=== PATIENT | female | born 1995 | race Hispanic/Latino ===

== ENCOUNTER 2021-08-09 08:36 | Day surgery (SDC) | payer OTHER, SELFPAY ==
[2021-08-09] MEDS ORDERED: hydrALAZINE 20 MG/ML VIAL SLOW IVP PRN (08:49)
[2021-08-09] MEDS ORDERED: Acetaminophen 500 MG TAB PO SCH (09:30)
[2021-08-09] MEDS ORDERED: Lactated Ringer's 1,000 ML IV SCH (09:45)
[2021-08-09 10:08] VITALS: BMI 31.6
[2021-08-09 10:13] VITALS: TEMP 102.2
[2021-08-09 10:14] LABS: SARS-CoV-2 NAA Rapid Test DETECTED (NotDetected)
== END 2021-08-09 11:40 | disposition home or self-care (01) ==
LOC: CSHLD/OP 08:36
PROVIDERS: ATTEND Obstetrics & Gynecology
DX: O98.513 Other viral diseases complicating pregnancy, third trimester (principal); U07.1 COVID-19; Z3A.28 28 weeks gestation of pregnancy
CPT/HCPCS: 96360; 99283

== ENCOUNTER 2021-10-10 14:52 | Outpatient (CLI) | payer OTHER | END 2021-10-10 14:53 | disposition home or self-care (01) | LOC: CSHLAB 14:52 | PROVIDERS: ATTEND Family Medicine | DX: Z20.822 Contact with and (suspected) exposure to COVID-19 (principal) | CPT/HCPCS: 87811 ==

== ENCOUNTER 2021-10-14 18:00 | Inpatient (IN) | payer OTHER ==
[2021-10-14 23:01] VITALS: BMI 31.6
[2021-10-14] MEDS ORDERED: Promethazine HCl 25 MG/ML VIAL IM PRN (23:45)
[2021-10-14] MEDS ORDERED: Docusate 100 MG CAP PO PRN (23:45)
[2021-10-14] MEDS ORDERED: Ondansetron PF 4 MG/2 ML Vial IVP PRN (23:45)
[2021-10-14] MEDS ORDERED: NS w/ Oxytocin 30 units 500 ML IV SCH (23:45)
[2021-10-14] MEDS ORDERED: Lidocaine 1% (PF) 30 ML VIAL SC PRN (23:45)
[2021-10-14] MEDS ORDERED: Ibuprofen 800 MG TAB PO PRN (23:45)
[2021-10-14] MEDS ORDERED: hydrALAZINE 20 MG/ML VIAL SLOW IVP PRN (23:45)
[2021-10-14] MEDS ORDERED: Misoprostol 100 MCG TAB VAG SCH (23:45)
[2021-10-14] MEDS: Lactated Ringer's 1,000 ML IV SCH (23:57)
[2021-10-15 00:18] LABS: Hemoglobin 11.3 g/dL (12.0-15.5); Mean Corpuscular HGB CONC 33.6 g/dL (32.0-36.0); Mean Corpuscular Hemoglobin 31.4 pg (27.0-33.0); Mean Corpuscular Volume 93.3 fl (81.6-98.3); Mean Platelet Volume 10.3 fl (7.4-10.4); Platelet Count 379 10x3/uL (150-450); RBC Distribution Width 12.9 % (11.5-14.5); White Blood Cell (WBC) Count 14.3 10x3/uL (3.5-10.5)
[2021-10-15] MEDS: NS w/ Oxytocin 30 units 500 ML IV SCH ×2 (00:43→16:55)
[2021-10-15 00:52] LABS: Syphilis Antibody Nonreactive (Nonreactive); Syphilis Antibody Index 0.04 S/CO (<1.00 Non-Reactive)
[2021-10-15 00:53] LABS: HBSAg Index 0.23 S/CO (0-0.99); Hep B Surf Ag Non-Reactive S/CO (NonReactive)
[2021-10-15] MEDS: Lactated Ringer's 1,000 ML IV SCH (07:08)
[2021-10-15] MEDS ORDERED: Fentanyl 2 mcg/Bup 0.1% Cadd 100 ML ONE (09:47)
[2021-10-15] MEDS ORDERED: diphenhydrAMINE 50 MG/ML VIAL IVP PRN (10:14)
[2021-10-15] MEDS ORDERED: Moisturizing Cream (Eucerin) 113 GM JAR TOP PRN (10:14)
[2021-10-15] MEDS ORDERED: Acetaminophen 325 MG TAB PO PRN (10:14)
[2021-10-15] MEDS ORDERED: Lactated Ringer's 500 ML IV PRN (10:14)
[2021-10-15] MEDS ORDERED: Ondansetron PF 4 MG/2 ML Vial IVP PRN ×2 (10:14→19:47)
[2021-10-15] MEDS ORDERED: Naloxone HCl 0.4 mg/ml Vial IVP PRN ×2 (10:14)
[2021-10-15] MEDS ORDERED: ePHEDrine Sulfate 50 MG/10 ML VIAL SLOW IVP PRN (10:14)
[2021-10-15] MEDS ORDERED: Promethazine HCl 25 MG/ML VIAL IM PRN (10:14)
[2021-10-15] MEDS ORDERED: Communication Order-Pharmacy FS SCH (10:15)
[2021-10-15] MEDS ORDERED: Fentanyl 2 mcg/Bupivacaine 0.1% Cassette 100 ML EPIDURAL SCH (10:15)
[2021-10-15] MEDS ORDERED: Methylergonovine 0.2 MG/ML VIAL ONE (13:57)
[2021-10-15] MEDS ORDERED: Carboprost 250 MCG/ML AMP ONE (13:58)
[2021-10-15] MEDS ORDERED: Misoprostol 200 MCG TAB ONE ×2 (13:58→17:58)
[2021-10-15] MEDS ORDERED: Tranexamic Acid 1,000 MG/10 ML VIAL ONE (13:58)
[2021-10-15] MEDS ORDERED: Lanolin Ointment 7 GM TUBE TOP PRN (19:47)
[2021-10-15] MEDS ORDERED: Milk Of Magnesia 30 ML UDCUP PO PRN (19:47)
[2021-10-15] MEDS ORDERED: NS w/ Oxytocin 30 units 500 ML IV SCH (19:47)
[2021-10-15] MEDS ORDERED: Bisacodyl 10 MG SUPP PR PRN (19:47)
[2021-10-15] MEDS ORDERED: Misoprostol 200 MCG TAB VAG PRN (19:47)
[2021-10-15] MEDS ORDERED: Preparation H Ointment 28 GM TUBE PR PRN (19:47)
[2021-10-15] MEDS ORDERED: diphenhydrAMINE 25 MG CAP PO PRN (19:47)
[2021-10-15] MEDS ORDERED: Boostrix 0.5 ML (Tdap) VIAL IM ONE (19:47)
[2021-10-15] MEDS ORDERED: hydrALAZINE 20 MG/ML VIAL SLOW IVP PRN (19:47)
[2021-10-15] MEDS ORDERED: Methylergonovine 0.2 MG/ML VIAL IM PRN (19:47)
[2021-10-15] MEDS ORDERED: Ferrous Sulfate 325 MG TAB PO SCH (20:15)
[2021-10-15] MEDS: Docusate 100 MG CAP PO SCH (20:20)
[2021-10-15] MEDS: Ibuprofen 800 MG TAB PO SCH (23:50)
[2021-10-16] MEDS: Lactated Ringer's 1,000 ML IV SCH (05:08)
[2021-10-16 05:10] LABS: Hemoglobin 11.4 g/dL (12.0-15.5); Mean Corpuscular Volume 94.1 fl (81.6-98.3); Mean Platelet Volume 10.2 fl (7.4-10.4); Platelet Count 353 10x3/uL (150-450); RBC Distribution Width 12.9 % (11.5-14.5); Red Blood Cell (RBC) Count 3.56 10x6/uL (3.90-5.03); White Blood Cell (WBC) Count 16.8 10x3/uL (3.5-10.5)
[2021-10-16] MEDS: Ibuprofen 800 MG TAB PO SCH ×2 (06:32→14:02)
[2021-10-16] MEDS: Ferrous Sulfate 325 MG TAB PO SCH ×2 (08:42→17:06)
[2021-10-16] MEDS: Docusate 100 MG CAP PO SCH (08:44)
[2021-10-16] MEDS ORDERED: Prenatal Vitamin 1 TAB PO SCH (09:00)
[2021-10-16 11:56] VITALS: BP 108/51; TEMP 98.8
== END 2021-10-16 18:30 | disposition home or self-care (01) | DRG 807 ==
LOC: CSHLD 22:08 → CSHPP 10-15 19:20
PROVIDERS: ADMIT Family Medicine; ATTEND Family Medicine
PROC: 10E0XZZ Delivery of Products of Conception, External Approach (ICD-10-PCS; principal; 2021-10-15)
PROC: 10907ZC Drainage of Amniotic Fluid, Therapeutic from Products of Conception, Via Natural or Artificial Opening (ICD-10-PCS; 2021-10-15)
PROC: 10H07YZ Insertion of Other Device into Products of Conception, Via Natural or Artificial Opening (ICD-10-PCS; 2021-10-15)
DX: O36.5930 Maternal care for other known or suspected poor fetal growth, third trimester, not applicable or unspecified (principal); Z37.0 Single live birth; Z3A.38 38 weeks gestation of pregnancy; Z86.16 Personal history of COVID-19; F32.A Depression, unspecified; O99.344 Other mental disorders complicating childbirth; Z79.899 Other long term (current) drug therapy; O76 Abnormality in fetal heart rate and rhythm complicating labor and delivery
CPT/HCPCS: 36415; 85027; 86780; 86850; 86900; 86901; 87340; J2590; J7120